=== PATIENT | female | born 1945 | race Caucasian/White ===

== ENCOUNTER 2025-10-06 14:10 | Emergency (ER) | payer OTHER ==
[~2025-10-06] VITALS: Ht 165.1 cm; Wt 57.2 kg
[2025-10-06] MEDS: IV NS 0.9% 1,000 ML BAG IV ONE (14:40)
[2025-10-06] MEDS ORDERED: CEFTRIAXONE 1GM BAG (ER ONLY) 50 ML IV ONE (14:40)
[2025-10-06] MEDS ORDERED: MEMA10TA PO (14:41)
[2025-10-06] MEDS ORDERED: ASCO100058 PO (14:41)
[2025-10-06] MEDS ORDERED: DONE10TA44 PO (14:41)
[2025-10-06 14:47] LABS: PLATELET COUNT (AUTO) 179 K/uL (150-450); RED BLOOD CELL COUNT(AUTO) 4.16 MIL/uL (4.0-5.2); RED CELL DISTRIBUTION WIDTH 14.1 % (11.5-15.0); WHITE BLOOD COUNT (AUTO) 9.4 K/uL (4.3-11.0)
[2025-10-06 14:56] LABS: CALCIUM, SERUM 9.8 mg/dL (8.5-10.1); CREATININE 1.6 mg/dL (0.6-1.3); SODIUM SERUM 139 mmol/L (136-145); UREA NITROGEN, BLOOD 26 mg/dL (7-18)
[2025-10-06 15:01] LABS: ASPARTATE AMINOTRANSFERASE 18 U/L (15-37); TOTAL PROTEIN, SERUM 7.1 g/dL (6.4-8.2)
[2025-10-06 15:02] LABS: INR 1.05 (0.91-1.10)
[2025-10-06 15:04] LABS: LACTIC ACID 1.1 mmol/L (0.4-2.0)
[2025-10-06] MEDS: CEFTRIAXONE 1GM BAG (ER ONLY) 50 ML IV ONE (15:18)
[2025-10-06 15:51] LABS: APPEARANCE,URINE CLOUDY (CLEAR); BLOOD, URINE 2+ Ery/uL (NEGATIVE); LEUKOCYTE ESTERASE ,URINE 3+ (NEGATIVE); NITRITE, URINE POSITIVE (NEGATIVE); UGLUCOSE NEGATIVE (NEGATIVE)
[2025-10-06 16:13] LABS: ADD URINE CULTURE YES; SQUAMOUS EPITHELIAL CELL,UR 0-2 /HPF (None Seen)
[2025-10-06] MEDS ORDERED: CEPH-570 PO (17:28)
[2025-10-06 18:17] VITALS: BP 118/72; TEMP 98.5; O2SAT 98
== END 2025-10-06 18:17 | disposition home or self-care (01) ==
LOC: ER 14:25
DX: N39.0 Urinary tract infection, site not specified (principal); R55 Syncope and collapse; E86.0 Dehydration
CPT/HCPCS: 99285; 96365; 70450; 71045; 96361 ×2; 93005; 84145; 85025; 80048; 87077 ×2; 87040 ×2; 87086; 83605; 80076; 87186 ×2; 81001; 36415; 84484 ×2; 85730; J7030; J0696